=== PATIENT | female | born 1960 | race Caucasian/White ===

== ENCOUNTER 2019-06-26 11:18 | Emergency (ER) | payer MEDICARE, OTHER, SELFPAY ==
[2019-06-26] VITALS (7 sets, daily range): BP systolic 99–133; BP diastolic 7–88; PULSE 70–78; RESP 10–18; TEMP 36.8–37.3; O2SAT 97–99; BMI 31.4
--- NOTE | 2019-06-26 11:47 | DI.RAD.S_ITS ---
PROCEDURE: XR CHEST 1V INDICATIONS: suspected sepsis TECHNIQUE: One view of the chest was acquired. COMPARISON: None. FINDINGS: Surgical changes and devices: None. Lungs and pleura: Lungs are clear. No pleural effusions or pneumothorax. Mediastinum: Mediastinal contours appear normal. Heart size is normal. Bones and chest wall: No suspicious bony lesions. Overlying soft tissues appear unremarkable. IMPRESSION: No acute cardiopulmonary disease. Dictated by: Consuelo White M.D. on 06/26/2019 at 12:38 Approved by: Consuelo White M.D. on 06/26/2019 at 12:49
[2019-06-26] MEDS: SODIUM CHLORIDE 0.9% 1,000 ML 1000 ML IV (12:14)
[2019-06-26 12:16] LABS: RBC Urine None Seen (0-5/HPF)
[2019-06-26 12:17] LABS: Add Manual Diff / Slide Review NO; Basophils Absolute Auto 0 /uL (0-100); Basophils Percent Auto 0.7 % (0-2); Eosinophils Absolute Auto 0 /uL (0-450); Eosinophils Percent Auto 0.4 % (2-4); Hematocrit 37.3 % (36-46); Hemoglobin 12.7 g/dL (12.0-16.0); Lymphocytes Absolute Auto 1900 /uL (1100-4500); Lymphocytes Percent Auto 40.3 % (25-40); Mean Corpuscular HGB Conc 34.1 % (30-36); Mean Corpuscular Hemoglobin 33.2 PG (26-34); Mean Corpuscular Volume 97.5 fL (80-100); Monocytes Absolute Auto 300 /uL (0-900); Monocytes Percent Auto 6.5 % (3-14); Neutrophils Absolute Auto 2500 /uL (1500-7000); Neutrophils Percent Auto 52.1 % (50-75); Platelet Count 222 X10^3/uL (150-400); Red Blood Cell Count 3.83 X10^6/uL (4.0-5.2); Red Cell Distribution Width 11.9 % (11.6-14.8); White Blood Cell Count 4.8 X10^3/uL (4.5-11.0)
--- NOTE | 2019-06-26 12:21 | ED_ITS ---
HPI - Fever General Chief Complaint: Fever Stated Complaint: bladder infection,blood pressure low Time Seen by Provider: 06/26/19 12:21 Source: patient Mode of arrival: Wheelchair Limitations: no limitations History of Present Illness HPI Narrative: 58-year-old female comes to the emergency department with complaint of UTI like symptoms. Patient states she has had bladder pain that started about a week ago. She states that she tried Uristat, cranberry juice and Zaria-[place]. She has not had fevers but has not felt well. She has had increasing abdominal pain and back hurting in the area of her kidneys on both sides. She has felt sort of dizzy. She denies any chest pain no shortness of breath. She states she has had some nausea but no active vomiting. She has had some diarrhea. No black no blood in her stool. Patient has not had any fevers she is aware of. She has had UTIs in the past. Cultures have not always been positive but they typically are. About 3 weeks ago she had a week of upper re spiratory infection that worked in to diarrhea and then resolved and then a week after resolution of her symptoms developed the bladder pain and spasm symptoms. Patient has a significant past medical history with Factor 5 Leiden, Prinzmetal angina, cardiac ablation for arrhythmias that resulted in a pacemaker, lupus, thyroid cancer that resulted in thyroidectomy, pseudotumor cerebri, and fibromya lgia. Patient has had a Kermit fundoplication, pacemaker was replaced and is MRI appropriate in June, thyroidectomy, ex lap, hysterectomy and has 1 ovary, hernia repair x2 and cardiac ablation. She is allergic to metoprolol and contrast dye but states she does well when prepped. She denies any antibiotic allergies Related Data Home Medications Medication Instructions Recorded Confirmed flecainide 50 mg PO BID #0 04/23/11 06/26/19 acetazolamide 500 mg 500 mg PO BID 06/26/19 06/26/19 capsule,extended release duloxetine 60 mg capsule,delayed 60 mg PO DAILY 06/26/19 06/26/19 release epinephrine 0.3 mg/0.3 mL 0.3 mg IM ONCE PRN 06/26/19 06/26/19 injection, auto-injector gabapentin 600 mg PO BEDTIME 06/26/19 06/26/19 gabapentin 300 mg capsule 300 mg PO QAM 06/26/19 06/26/19 hydroxychloroquine 200 mg tablet 200 mg PO BID 06/26/19 06/26/19 isosorbide mononitrate 120 mg 120 mg PO DAILY 06/26/19 06/26/19 tablet,extended release 24 hr levothyroxine 88 mcg tablet 88 mcg PO DAILY 06/26/19 06/26/19 liothyronine 5 mcg tablet 2.5 mcg PO DAILY tab 06/26/19 06/26/19 memantine 5 mg tablet 5 mg PO BID 06/26/19 06/26/19 nitroglycerin 0.4 mg sublingual 0.4 mg SL Q5M PRN 06/26/19 06/26/19 tablet tizanidine 4 mg capsule 4 - 8 mg PO TID PRN 06/26/19 06/26/19 verapamil 200 mg capsule 24hr 200 mg PO BEDTIME 06/26/19 06/26/[address],ext.release Previous Rx's Medication Instructions Recorded amoxicillin-pot clavulanate 1 tab PO BID #14 tab 06/26/19 [Augmentin] Allergies Allergy/AdvReac Type Severity Reaction Status Date / Time codeine Allergy Severe Anaphylaxis Verified 06/26/19 11:46 Iodinated Contrast Media Allergy Severe tongue Verified 06/26/19 11:46 swelling, trouble swallowing metoprolol Allergy Severe Anaphylaxis Verified 06/26/19 11:46 Review of Systems Review of Systems ROS Unobtainable: All systems reviewed & are unremarkable except as noted in HPI and below PFSH Medical History Factor 5 Leiden mutation, heterozygous (Acute) Fibromyalgia (Acute) Lupus (Acute) Pacemaker (Acute) Prinzmetal angina (Acute) Pseudotumor cerebri (Acute) Surgical History H/O cardiac radiofrequency ablation (Acute) H/O thyroidectomy (Acute) H/O: hysterectomy (Acute) History of Kermit fundoplication (Acute) Family History (Updated 06/26/19 @ 12:59 by Leidy Hale DO) Son Heart attack Social History Smoking Status: Never smoker Family History Son Heart attack Social History Smoking Status: Never smoker Exam Narrative Exam Narrative: GENERAL: Alert and oriented x three, well-nourished female in mild distress. HEENT: Head normocephalic, atraumatic, EOMI, pupils reactive, face symmetric, moist mucous membranes NECK: Supple, full range of motion CARDIOVASCULAR: Regular rate and rhythm without murmurs, rubs or gallops. RESPIRATORY: Breath sounds equal bilaterally, no wheezes rales or rhonchi. ABDOMEN: Soft, generalized suprapubic tender. Normoactive bowel sounds all 4 quadrants. No guarding or rebound, rigidity, no mass : Mild bilateral CVA tenderness EXTREMITIES: Normal range of motion, no clubbing or edema. Neurovascularly intact NEUROLOGICAL: Cranial nerves II through XII grossly intact. Moving all extrem ities SKIN: Warm, dry, no petechiae, no rashes or lesions. Initial Vital Signs Initial Vital Signs: Vital Signs Temperature 98.3 F 06/26/19 11:42 Pulse Rate 78 06/26/19 11:42 Respiratory Rate 12 06/26/19 11:42 Blood Pressure 109/62 06/26/19 11:42 Pulse Oximetry 99 06/26/19 11:42 Course Orders Ordered: ED Orders 06/26/19 11:36 Urine Culture Stat Urine Microscopic Stat 06/26/19 11:47 XR chest 1V Stat EKG-12 Lead Stat RT Consult Eval and Treat Now 06/26/19 12:07 Blood Culture Stat Complete Blood Count AUTO DIFF Stat Comprehensive Metabolic Panel Stat Lactate (Lactic Acid) Stat Lipase Stat Partial Thromboplastin Time Stat Procalcitonin Stat Prothrombin Time INR Stat 06/26/19 12:54 CT kidney ureter bladder (KUB) Stat Discontinued Medications Sodium Chloride (Normal Saline 0.9%) 1,000 mls @ 1,000 mls/hr IV BOLUS ONE Stop: 06/26/19 12:46 Last Infusion: 06/26/19 13:30 Dose: 0 mls/hr Documented by: Admin: 06/26/19 12:14 Dose: 1,000 mls/hr Documented by: SAEED Ceftriaxone Sodium/Dextrose (Rocephin) 2 gm in 50 mls @ 100 mls/hr IV NOW ONE Stop: 06/26/19 13:30 Last Infusion: 06/26/19 14:20 Dose: 0 mls/hr Documented by: Admin: 06/26/19 13:13 Dose: 100 mls/hr Documented by: RAFAEL Vital Signs Vital signs: Vital Signs - 8 hr 06/26/19 11:42 06/26/19 12:10 06/26/19 12:14 Temperature 98.3 F Pulse Rate 78 70 Pulse Rate [Orthostatic Lying] 72 Pulse Rate [Orthostatic Sitting] 72 Pulse Rate [Orthostatic Standing] 75 Respiratory Rate 12 18 Blood Pressure 109/62 Blood Pressure [Orthostatic Lying] 99/62 Blood Pressure [Orthostatic Sitting] 111/71 Blood Pressure [Orthostatic Standing] 100/68 Blood Pressure [Right Arm] 104/65 Pulse Oximetry 99 97 06/26/19 12:30 06/26/19 13:13 06/26/19 14:00 Temperature Pulse Rate 70 74 70 Pulse Rate [Orthostatic Lying] Pulse Rate [Orthostatic Sitting] Pulse Rate [Orthostatic Standing] Respiratory Rate 14 17 10 L Blood Pressure Blood Pressure [Orthostatic Lying] Blood Pressure [Orthostatic Sitting] Blood Pressure [Orthostatic Standing] Blood Pressure [Right Arm] 109/7 L 114/69 122/79 Pulse Oximetry 97 98 98 06/26/19 14:54 Temperature 99.2 F Pulse Rate 70 Pulse Rate [Orthostatic Lying] Pulse Rate [Orthostatic Sitting] Pulse Rate [Orthostatic Standing] Respiratory Rate 18 Blood Pressure 133/88 Blood Pressure [Orthostatic Lying] Blood Pressure [Orthostatic Sitting] Blood Pressure [Orthostatic Standing] Blood Pressure [Right Arm] Pulse Oximetry 97 MDM - Fever Lab Data Attestation: I reviewed the patient's lab results. Result diagrams: 06/26/19 12:07 06/26/19 12:07 Labs: Lab Results 06/26/19 06/26/19 06/26/19 Range/Units 11:36 12:07 12:07 WBC 4.8 (4.5-11.0) X10^3/uL RBC 3.83 L (4.0-5.2) X10^6/uL Hgb 12.7 (12.0-16.0) g/dL Hct 37.3 (36-46) % MCV 97.5 (80-100) fL MCH 33.2 (26-34) PG MCHC 34.1 (30-36) % RDW 11.9 (11.6-14.8) % Plt Count 222 (150-400) X10^3/uL Neut % (Auto) 52.1 (50-75) % Lymph % (Auto) 40.3 H (25-40) % [place] % (Auto) 6.5 (3-14) % Eos % (Auto) 0.4 L (2-4) % Baso % (Auto) 0.7 (0-2) % Neut # (Auto) 2500 (0058-9840) /uL Lymph # (Auto) 1900 (5717-1696) /uL [place] # (Auto) 300 (0-900) /uL Eos # (Auto) 0 (0-450) /uL Baso # (Auto) 0 (0-100) /uL PT 11.3 (10.1-12.7) SECONDS INR 1.0 (0.9-1.3) APTT 35 (26.4-36.2) SECONDS Sodium (137-145) mmol/L Potassium (3.4-5.1) mmol/L Chloride (98-107) mmol/L Carbon Dioxide (22-32) mmol/L BUN (7-17) mg/dL Creatinine (0.52-1.04) mg/dL Estimated GFR (>60) mL/min BUN/Creatinine Ratio (6-22) Glucose (70-100) mg/dL Lactate (0.7-2.1) mmol/L Calcium (8.4-10.2) mg/dL Total Bilirubin (0.2-1.3) mg/dL AST (14-36) IU/L ALT (9-52) IU/L Alkaline Phosphatase (38-126) U/L Total Protein (6.3-8.2) g/dL Albumin (3.5-5.0) g/dL Globulin (1.7-4.1) g/dL Albumin/Globulin Ratio (1.0-2.8) Lipase (23-300) U/L Procalcitonin (<0.5) ng/mL Urine RBC None seen (0-5/HPF) Urine WBC 1-5/hpf (0-5/HPF) Ur Squamous Epith Cells 10-30 /hpf H (0-5/HPF) Ur Transition Epith Cell 1-5/hpf (0-5/HPF) Urine Bacteria Few (2-10) H (None) Ur Culture Indicated? Culture not indicate Micro UA Comment 06/26/19 06/26/19 06/26/19 Range/Units 12:07 12:07 12:07 WBC (4.5-11.0) X10^3/uL RBC (4.0-5.2) X10^6/uL Hgb (12.0-16.0) g/dL Hct (36-46) % MCV (80-100) fL MCH (26-34) PG MCHC (30-36) % RDW (11.6-14.8) % Plt Count (150-400) X10^3/uL Neut % (Auto) (50-75) % Lymph % (Auto) (25-40) % [place] % (Auto) (3-14) % Eos % (Auto) (2-4) % Baso % (Auto) (0-2) % Neut # (Auto) (9119-4329) /uL Lymph # (Auto) (5737-5460) /uL [place] # (Auto) (0-900) /uL Eos # (Auto) (0-450) /uL Baso # (Auto) (0-100) /uL PT (10.1-12.7) SECONDS INR (0.9-1.3) APTT (26.4-36.2) SECONDS Sodium 143 (137-145) mmol/L Potassium 3.5 (3.4-5.1) mmol/L Chloride 109 H (98-107) mmol/L Carbon Dioxide 23 (22-32) mmol/L BUN 13 (7-17) mg/dL Creatinine 0.80 (0.52-1.04) mg/dL Estimated GFR > 60.0 (>60) mL/min BUN/Creatinine Ratio 16.3 (6-22) Glucose 78 (70-100) mg/dL Lactate 0.9 (0.7-2.1) mmol/L Calcium 8.6 (8.4-10.2) mg/dL Total Bilirubin 0.5 (0.2-1.3) mg/dL AST 27 (14-36) IU/L ALT 19 (9-52) IU/L Alkaline Phosphatase 40 (38-126) U/L Total Protein 6.6 (6.3-8.2) g/dL Albumin 3.9 (3.5-5.0) g/dL Globulin 2.7 (1.7-4.1) g/dL Albumin/Globulin Ratio 1.4 (1.0-2.8) Lipase 66 (23-300) U/L Procalcitonin < 0.05 (<0.5) ng/mL Urine RBC (0-5/HPF) Urine WBC (0-5/HPF) Ur Squamous Epith Cells (0-5/HPF) Ur Transition Epith Cell (0-5/HPF) Urine Bacteria (None) Ur Culture Indicated? Micro UA Comment Urine Dip Bedside Urine Glucose Negative Bedside Urine Bilirubin + 1 Bedside Urine Ketone - Negative Urine Specific [place] 1.010 Bedside Urine Occult Blood - Negative Bedside Urine pH 7.0 Bedside Urine Protein - Negative Bedside Urine Urobilinogen +/- 1mg Bedside Urine Nitrite + Positive Bedside Urine Leukocytes ++ [address] scan - abdomen: Radiologist's impression: DO Alpesh Diego Patient Imaging - Kathryn Gomez E 58 F 1960 ACTIVITY DATE EXAM STATUS AUTHOR 06/26/19 12:54 [facility]26[facility] 11:47 [place] [address] CT Scan Report Signed Patient: Kathryn Gomez EMR#: [id number] : 2Acct:[id number] Age/Sex: 58 / FDate of Service: 06/26/19 Loc: ED Accession Number: [id number] Procedure: CT kidney ureter bladder (KUB) Ordering Provider: Leidy Hale D.O. PROCEDURE: CT KIDNEY URETER BLADDER (KUB) INDICATIONS: uti, ? stones back/abd pain TECHNIQUE: Noncontrast 5 mm thick sections acquired from the diaphragms to the symphysis. 5 mm thick coronal and sagittal reformats were then performed. For radiation dose reduction, the following was used: automated exposure control, adjustment of mA and/or kV according to patient size. COMPARISON: None. FINDINGS: Image quality: Excellent. Lung bases: Lung bases are clear. Heart size is normal. Surgical clips at the GE junction. Urinary system: Both kidneys are normal in size. No kidney stones. There is trace renal pelviectasis bilaterally. No ureteral stones. Both ureters appear non- dilated throughout their expected courses. Bladder wall thickness is normal; no calcified bladder stones. Uterus is surgically absent. Ovaries are not visualized. No pathological free fluid in pelvis. Other solid organs: Liver is normal in size. Gallbladder is normal. Pancreas is normal in contours. Spleen is normal in size. No adrenal nodules. Peritoneum and bowel: Unenhanced bowel loops demonstrate normal wall thickness and caliber. There are colonic diverticula. No CT findings to suggest active diverticulitis. No free fluid or air. There is a large amount of stool in colon. Nodes and vessels: No retroperitoneal or mesenteric adenopathy by size criteria. Aorta and inferior vena cava are normal in caliber. Abdominal wall: There is a small fat containing umbilical hernia. Prior ventral hernia repair. Pelvis: No free pelvic fluid. No inguinal hernias or adenopathy. Bones: No suspicious bony lesions. No vertebral body compression fractures. IMPRESSION: 1. No renal stones. Trace bilateral renal pelviectasis may be secondary to vesicoureteral reflux. 2. Diverticulosis without diverticulitis. 3. Large amount of stool in colon. 4. Small fat containing umbilical hernia. Dictated by: Consuelo White M.D. on 06/26/2019 at 14:10 Approved by: Consuelo White M.D. on 06/26/2019 at 14:19 Chest x-ray: Radiologist's impression: Kathryn Gomez E 58 F 1960 [place] [address] XRay Report Signed Patient: Kathryn Gomez EMR#: [id number] : 1960cct:[id number] Age/Sex: 58 / FDate of Service: 06/26/19 Loc: ED Accession Number: [id number] Procedure: XR chest 1V Ordering Provider: Leidy Hale D.O. PROCEDURE: XR CHEST 1V INDICATIONS: suspected sepsis TECHNIQUE: One view of the chest was acquired. COMPARISON: None. FINDINGS: Surgical changes and devices: None. Lungs and pleura: Lungs are clear. No pleural effusions or pneumothorax. Mediastinum: Mediastinal contours appear normal. Heart size is normal. Bones and chest wall: No suspicious bony lesions. Overlying soft tissues appear unremarkable. IMPRESSION: No acute cardiopulmonary disease. Dictated by: Consuelo White M.D. on 06/26/2019 at 12:38 Approved by: Consuelo White M.D. on 06/26/2019 at 12:49 ECG Data Attestation: I personally reviewed and interpreted this ECG as follows: Interpretation: Atrial paced rhythm, rate of 70, P are 209 QRS of 114 QTC of 414. No ST changes appreciated nonspecific. No priors available MDM Narrative Medical decision making narrative: Patient's lab work shows UTI with nitrates and leukocyte esterase, patient is clinically symptomatic and treated with Rocephin and Augmentin for pyelonephritis. Patient is on multiple medications so this was selected to avoid medication interaction. Patient does not have a white count, coags are normal, chloride is 109 but otherwise normal CMP with a procalcitonin of less than 0.05. Patient's urine was sent for culture as well as blood cultures. KUB showed no stones, trace bilateral renal pelvic cases which could be secondary to vesicoureteral reflux. Some diverticulosis without diverticulitis, large amount of stool in colon and a small fat containing umbilical hernia. These were all discussed with the patient. Patient I discussed 3 through 3 turned over to use she does not have localized Health Care. Also encouraged her to return home to have some sort of follow-up she has not seen her physician since January. Discharge Plan Departure Patient Disposition: Home Clinical Impression: Pyelonephritis Discharge Date/Time: 06/26/19 14:54 Instructions: DI for Kidney Infection Activity Restrictions/Additional Instructions: Follow-up with your physician. Take antibiotics until they are completely gone. You may continue your home medications as prescribed. Return to the emergency department for fevers greater 100.4 F, new vision changes, passing out, chest pain, shortness of breath, worsening abdominal or back pain, persistent, black or bloody stools or other new or concerning symptoms. Prescriptions: New amoxicillin-pot clavulanate [Augmentin] 875-125 mg tablet 1 tab PO BID Qty: 14 RF: 0 No Action gabapentin 300 mg capsule 300 mg PO QAM RF: 0 isosorbide mononitrate 120 mg tablet extended release 24 hr 120 mg PO DAILY RF: 0 hydroxychloroquine 200 mg tablet 200 mg PO BID RF: 0 duloxetine 60 mg capsule,delayed release(DR/EC) 60 mg PO DAILY RF: 0 tizanidine 4 mg capsule 4 - 8 mg PO TID PRN (Reason: Spasms) RF: 0 liothyronine 5 mcg tablet 2.5 mcg PO DAILY RF: 0 acetazolamide 500 mg capsule, extended release 500 mg PO BID RF: 0 verapamil 200 mg capsule, [address] 200 mg PO BEDTIME RF: 0 memantine 5 mg tablet 5 mg PO BID RF: 0 nitroglycerin 0.4 mg tablet, sublingual 0.4 mg SL Q5M PRN (Reason: Chest Pain) RF: 0 levothyroxine [Synthroid] 88 mcg tablet 88 mcg PO DAILY RF: 0 epinephrine 0.3 mg/0.3 mL auto-injector 0.3 mg IM ONCE PRN (Reason: Allergic Reaction) RF: 0 flecainide 50 MG tablet 50 mg PO BID Qty: 0 RF: 0 gabapentin 300 mg Capsule 600 mg PO BEDTIME RF: 0
[2019-06-26 12:23] LABS: Prothrombin Time 11.3 SECONDS (10.1-12.7)
[2019-06-26 12:25] LABS: PTT Partial Thromboplastin Tim 35 SECONDS (26.4-36.2)
[2019-06-26 12:27] LABS: Bacteria Urine Few (2-10); Squamous Epithelial Cell Urine 10-30 /HPF (0-5/HPF); Transitional Epi Cells Urine 1-5/HPF (0-5/HPF); WBC Urine 1-5/HPF (0-5/HPF)
[2019-06-26 12:31] LABS: Alanine Aminotransferase 19 IU/L (9-52); Albumin 3.9 g/dL (3.5-5.0); Albumin Globulin Ratio 1.4 (1.0-2.8); Alkaline Phosphatase 40 U/L (38-126); Aspartate Aminotransferase 27 IU/L (14-36); BUN Creatinine Ratio 16.3 (6-22); Bilirubin Total 0.5 mg/dL (0.2-1.3); Blood Urea Nitrogen 13 mg/dL (7-17); Calcium 8.6 mg/dL (8.4-10.2); Carbon Dioxide 23 mmol/L (22-32); Chloride 109 mmol/L (98-107); Estimated Glomerular Filt Rate > 60.0 mL/min (>60); Globulin 2.7 g/dL (1.7-4.1); Glucose 78 mg/dL (70-100); HEMOLYSIS < 15 (0-50); Lactate (Lactic Acid) 0.9 mmol/L (0.7-2.1); Lipase 66 U/L (23-300); Potassium 3.5 mmol/L (3.4-5.1); Sodium 143 mmol/L (137-145); Total Protein 6.6 g/dL (6.3-8.2)
[2019-06-26 12:45] LABS: Procalcitonin < 0.05 ng/mL (<0.5)
--- NOTE | 2019-06-26 12:54 | DI.CT.S_ITS ---
PROCEDURE: CT KIDNEY URETER BLADDER (KUB) INDICATIONS: uti, ? stones back/abd pain TECHNIQUE: Noncontrast 5 mm thick sections acquired from the diaphragms to the symphysis. 5 mm thick coronal and sagittal reformats were then performed. For radiation dose reduction, the following was used: automated exposure control, adjustment of mA and/or kV according to patient size. COMPARISON: None. FINDINGS: Image quality: Excellent. Lung bases: Lung bases are clear. Heart size is normal. Surgical clips at the GE junction. Urinary system: Both kidneys are normal in size. No kidney stones. There is trace renal pelviectasis bilaterally. No ureteral stones. Both ureters appear non-dilated throughout their expected courses. Bladder wall thickness is normal; no calcified bladder stones. Uterus is surgically absent. Ovaries are not visualized. No pathological free fluid in pelvis. Other solid organs: Liver is normal in size. Gallbladder is normal. Pancreas is normal in contours. Spleen is normal in size. No adrenal nodules. Peritoneum and bowel: Unenhanced bowel loops demonstrate normal wall thickness and caliber. There are colonic diverticula. No CT findings to suggest active diverticulitis. No free fluid or air. There is a large amount of stool in colon. Nodes and vessels: No retroperitoneal or mesenteric adenopathy by size criteria. Aorta and inferior vena cava are normal in caliber. Abdominal wall: There is a small fat containing umbilical hernia. Prior ventral hernia repair. Pelvis: No free pelvic fluid. No inguinal hernias or adenopathy. Bones: No suspicious bony lesions. No vertebral body compression fractures. IMPRESSION: 1. No renal stones. Trace bilateral renal pelviectasis may be secondary to vesicoureteral reflux. 2. Diverticulosis without diverticulitis. 3. Large amount of stool in colon. 4. Small fat containing umbilical hernia. Dictated by: Consuelo White M.D. on 06/26/2019 at 14:10 Approved by: Consuelo White M.D. on 06/26/2019 at 14:19
[2019-06-26] MEDS: CEFTRIAXONE 2 GM/50 ML FROZ.PIGGY IV (13:13)
== END 2019-06-26 14:54 | disposition home or self-care (01) ==
PROVIDERS: Emergency Provider Emergency Medicine
DX: N10 Acute pyelonephritis (principal)
CPT/HCPCS: 36415; 71045; 74176; 80053; 81003; 81015; 83605; 83690; 84145; 85025; 85610; 85730; 87040; 87086; 93005; 96361; 96365; 99285; J0696

== ENCOUNTER 2019-07-01 19:13 | Emergency (ER) | payer MEDICARE, OTHER, SELFPAY ==
[2019-07-01 19:37] VITALS: BP 119/98; PULSE 81; RESP 16; TEMP 36.7; O2SAT 100; BMI 31.9
--- NOTE | 2019-07-01 19:43 | ED.CHESTPAIN ---
HPI - Chest Pain General Chief Complaint: Chest Pain Stated Complaint: states blood pressure drops when she stands Time Seen by Provider: 07/01/19 19:43 Source: patient Mode of arrival: Ambulatory History of Present Illness HPI narrative: PATIENT IS A 58-YEAR-OLD FEMALE WITH HISTORY OF PRINZMETAL ANGINA PACEMAKER AND ATRIAL FIBRILLATION PRESENTING WITH DIZZINESS AND LIGHTHEADEDNESS EVERY TIME SHE STANDS UP. SHE WAS SEEN EVALUATED HERE ON 06/26/2019 FOR SOMETHING SIMILAR. AT THAT TIME SHE WAS DIAGNOSED WITH UTI. HE STATES THAT IT HAS CONTINUED SHE HAS NOT PASSED OUT MOM IT IS NOT WHEN SHE HAS HAD UPS ONLY WHEN SHE STARTS WALKING. She denies any chest pain heart palpitations she does have a mild cough. No nausea vomiting or diaphoresis. He has had some diarrhea no abdominal pain. She is traveling she supposed to go to [place] on Wednesday and is from [place]. Related Data Home Medications Medication Instructions Recorded Confirmed flecainide 50 mg PO BID #0 04/23/11 06/26/19 acetazolamide 500 mg 500 mg PO BID 06/26/19 06/26/19 capsule,extended release duloxetine 60 mg capsule,delayed 60 mg PO DAILY 06/26/19 06/26/19 release epinephrine 0.3 mg/0.3 mL 0.3 mg IM ONCE PRN 06/26/19 06/26/19 injection, auto-injector gabapentin 600 mg PO BEDTIME 06/26/19 06/26/19 gabapentin 300 mg capsule 300 mg PO QAM 06/26/19 06/26/19 hydroxychloroquine 200 mg tablet 200 mg PO BID 06/26/19 06/26/19 isosorbide mononitrate 120 mg 120 mg PO DAILY 06/26/19 06/26/19 tablet,extended release 24 hr levothyroxine 88 mcg tablet 88 mcg PO DAILY 06/26/19 06/26/19 liothyronine 5 mcg tablet 2.5 mcg PO DAILY tab 06/26/19 06/26/19 memantine 5 mg tablet 5 mg PO BID 06/26/19 06/26/19 nitroglycerin 0.4 mg sublingual 0.4 mg SL Q5M PRN 06/26/19 06/26/19 tablet tizanidine 4 mg capsule 4 - 8 mg PO TID PRN 06/26/19 06/26/19 verapamil 200 mg capsule 24hr 200 mg PO BEDTIME 06/26/19 06/26/[address],ext.release Previous Rx's Medication Instructions Recorded amoxicillin-pot clavulanate 1 tab PO BID #14 tab 06/26/19 [Augmentin] isosorbide mononitrate 60 mg PO QAM #30 tab 07/01/19 Allergies Allergy/AdvReac Type Severity Reaction Status Date / Time codeine Allergy Severe Anaphylaxis Verified 06/26/19 11:46 Iodinated Contrast Media Allergy Severe tongue Verified 06/26/19 11:46 swelling, trouble swallowing metoprolol Allergy Severe Anaphylaxis Verified 06/26/19 11:46 Review of Systems Review of Systems Narrative: GENERAL: Denies chills, fatigue, malaise, fever, sweats, travel HEENT: Denies sinus pain, ear pain, sore throat, difficulty swallowing, neck pain RESPIRATORY: Denies dyspnea, cough, wheezing, hemoptysis, sputum. CARDIOVASCULAR: See HPI GASTROINTESTINAL: Denies nausea, vomiting, abdominal pain, diarrhea, constipation, melena. : Denies dysuria, frequency, incontinence, hematuria, urinary retention, flank pain. MUSCULOSKELETAL: Denies weakness, joint pain, or bony pain SKIN: No rash, no erythema, no pruritus NEUROLOGIC: Denies weakness, dizziness, headache, numbness, change in speech, confusion PSYCHIATRIC: No concerning psychosocial issues. 12 point review of systems is negative except for those stated above and HPI Patient History Medical/Surgical History Medical History Factor 5 Leiden mutation, heterozygous (Acute) Fibromyalgia (Acute) Lupus (Acute) Pacemaker (Acute) Prinzmetal angina (Acute) Pseudotumor cerebri (Acute) Surgical History H/O cardiac radiofrequency ablation (Acute) H/O thyroidectomy (Acute) H/O: hysterectomy (Acute) History of Kermit fundoplication (Acute) Family History Son Heart attack Social History Smoking Status: Never smoker Family/Social History Family History Son Heart attack Social History Smoking Status: Never smoker alcohol intake frequency: 0-2 drinks per day Substance Use Type: does not use Exam Initial Vital Signs Initial Vital Signs: Vital Signs Temperature 98.1 F 07/01/19 19:37 Pulse Rate 81 07/01/19 19:37 Respiratory Rate 16 07/01/19 19:37 Blood Pressure 119/98 H 07/01/19 19:37 Pulse Oximetry 100 07/01/19 19:37 GENERAL: Well-appearing, well-nourished and in no acute distress. HEENT: Head atraumatic,EOMI, pupils reactive, face symmetric, moist mucous membranes CARDIOVASCULAR: Regular rate and rhythm without murmurs, rubs or gallops. RESPIRATORY: Breath sounds equal bilaterally, no wheezes rales or rhonchi. ABDOMEN: Soft, nontender. Normoactive bowel sounds all 4 quadrants. No guarding or rebound. EXTREMITIES: Normal range of motion, no clubbing or edema. Neurovascularly intact NEUROLOGICAL: Alert and oriented x4.Normal gait and speech. Cranial nerves II through XII grossly intact. SKIN: Warm, dry, no laceration, no petechiae, no rashes or lesions. Course Orders Ordered: Discontinued Medications Sodium Chloride (Normal Saline 0.9%) 1,000 mls @ 1,000 mls/hr IV BOLUS ONE Stop: 07/01/19 21:20 Last Infusion: 07/01/19 22:38 Dose: 0 mls/hr Documented by: Admin: 07/01/19 20:49 Dose: 1,000 mls/hr Documented by: CABRERA Vital Signs Vital signs: Vital Signs - 8 hr 07/01/19 19:37 07/01/19 19:54 07/01/19 19:55 Temperature 98.1 F Pulse Rate 81 75 Pulse Rate [Orthostatic Lying] 74 Pulse Rate [Orthostatic Sitting] 73 Pulse Rate [Orthostatic Standing] 73 Respiratory Rate 16 15 Blood Pressure 119/98 H Blood Pressure [Orthostatic Lying] 106/61 Blood Pressure [Orthostatic Sitting] 99/68 Blood Pressure [Orthostatic Standing] 100/68 Blood Pressure [Right Arm] 100/68 Pulse Oximetry 100 97 07/01/19 20:42 07/01/19 22:00 07/01/19 22:44 Temperature Pulse Rate 71 71 70 Pulse Rate [Orthostatic Lying] Pulse Rate [Orthostatic Sitting] Pulse Rate [Orthostatic Standing] Respiratory Rate 14 15 16 Blood Pressure 131/76 Blood Pressure [Orthostatic Lying] Blood Pressure [Orthostatic Sitting] Blood Pressure [Orthostatic Standing] Blood Pressure [Right Arm] 144/88 H 126/79 Pulse Oximetry 99 98 MDM - Chest Pain Lab Data Attestation: I reviewed the patient's lab results. Result diagrams: 07/01/19 19:45 07/01/19 19:45 Labs: Lab Results 07/01/19 07/01/19 07/01/19 Range/Units 19:45 19:45 19:45 WBC 6.0 (4.5-11.0) X10^3/uL RBC 3.68 L (4.0-5.2) X10^6/uL Hgb 12.4 (12.0-16.0) g/dL Hct 36.2 (36-46) % MCV 98.4 (80-100) fL MCH 33.7 (26-34) PG MCHC 34.2 (30-36) % RDW 11.9 (11.6-14.8) % Plt Count 233 (150-400) X10^3/uL Neut % (Auto) 54.8 (50-75) % Lymph % (Auto) 37.2 (25-40) % [place] % (Auto) 7.2 (3-14) % Eos % (Auto) 0.0 L (2-4) % Baso % (Auto) 0.8 (0-2) % Neut # (Auto) 3300 (2931-4868) /uL Lymph # (Auto) 2200 (5725-9097) /uL [place] # (Auto) 400 (0-900) /uL Eos # (Auto) 0 (0-450) /uL Baso # (Auto) 0 (0-100) /uL PT 11.7 (10.1-12.7) SECONDS INR 1.0 (0.9-1.3) APTT 34 (26.4-36.2) SECONDS Sodium 141 (137-145) mmol/L Potassium 3.4 (3.4-5.1) mmol/L Chloride 108 H (98-107) mmol/L Carbon Dioxide 23 (22-32) mmol/L BUN 14 (7-17) mg/dL Creatinine 0.90 (0.52-1.04) mg/dL Estimated GFR > 60.0 (>60) mL/min BUN/Creatinine Ratio 15.6 (6-22) Glucose 94 (70-100) mg/dL Calcium 8.9 (8.4-10.2) mg/dL Total Bilirubin 0.6 (0.2-1.3) mg/dL AST 28 (14-36) IU/L ALT 21 (9-52) IU/L Alkaline Phosphatase 40 (38-126) U/L Total Creatine Kinase 64 (30-135) U/L CK-MB (CK-2) TNP CK-MB (CK-2) Rel Index TNP Troponin I < 0.012 (0.01-0.034) ng/mL B-Natriuretic Peptide (<100) Total Protein 6.7 (6.3-8.2) g/dL Albumin 4.2 (3.5-5.0) g/dL Globulin 2.5 (1.7-4.1) g/dL Albumin/Globulin Ratio 1.7 (1.0-2.8) Lipase 97 (23-300) U/L 07/01/19 Range/Units 19:45 WBC (4.5-11.0) X10^3/uL RBC (4.0-5.2) X10^6/uL Hgb (12.0-16.0) g/dL Hct (36-46) % MCV (80-100) fL MCH (26-34) PG MCHC (30-36) % RDW (11.6-14.8) % Plt Count (150-400) X10^3/uL Neut % (Auto) (50-75) % Lymph % (Auto) (25-40) % [place] % (Auto) (3-14) % Eos % (Auto) (2-4) % Baso % (Auto) (0-2) % Neut # (Auto) (7545-9881) /uL Lymph # (Auto) (5399-6086) /uL [place] # (Auto) (0-900) /uL Eos # (Auto) (0-450) /uL Baso # (Auto) (0-100) /uL PT (10.1-12.7) SECONDS INR (0.9-1.3) APTT (26.4-36.2) SECONDS Sodium (137-145) mmol/L Potassium (3.4-5.1) mmol/L Chloride (98-107) mmol/L Carbon Dioxide (22-32) mmol/L BUN (7-17) mg/dL Creatinine (0.52-1.04) mg/dL Estimated GFR (>60) mL/min BUN/Creatinine Ratio (6-22) Glucose (70-100) mg/dL Calcium (8.4-10.2) mg/dL Total Bilirubin (0.2-1.3) mg/dL AST (14-36) IU/L ALT (9-52) IU/L Alkaline Phosphatase (38-126) U/L Total Creatine Kinase (30-135) U/L CK-MB (CK-2) CK-MB (CK-2) Rel Index Troponin I (0.01-0.034) ng/mL B-Natriuretic Peptide < 100 (<100) Total Protein (6.3-8.2) g/dL Albumin (3.5-5.0) g/dL Globulin (1.7-4.1) g/dL Albumin/Globulin Ratio (1.0-2.8) Lipase (23-300) U/L Urine Dip Bedside Urine Glucose Negative Bedside Urine Bilirubin - Negative Bedside Urine Ketone - Negative Urine Specific [place] 1.005 Bedside Urine Occult Blood - Negative Bedside Urine pH 7.0 Bedside Urine Protein - Negative Bedside Urine Urobilinogen - Negative Bedside Urine Nitrite - Negative Bedside Urine Leukocytes - Negative Esterase Imaging Data Chest x-ray: Radiologist's impression: PROCEDURE: XR CHEST 1V INDICATIONS: chest pain TECHNIQUE: One view of the chest was acquired. COMPARISON: [facility], , XR CHEST 1V, 06/26/2019, 11:51. FINDINGS: Surgical changes and devices: Pacemaker. Lungs and pleura: Lungs are clear. No pleural effusions or pneumothorax. Mediastinum: Mediastinal contours appear normal. Heart size is normal. Bones and chest wall: No suspicious bony lesions. Overlying soft tissues appear unremarkable. IMPRESSION: No acute pulmonary process. Dictated by: Dorothy Sandoval M.D. on 07/01/2019 at 20:14 ECG Data Attestation: I personally reviewed and interpreted this ECG as follows: Prior ECG tracings: available for review Interpretation: Normal sinus rhythm paced rate [address] changes or to previous EKG MDM Narrative Medical decision making narrative: She does have positive orthostatics., he is not hypoxic she is on quite a large dose of isosorbide monoitrate, although she says she has been on the same dose of medications for quite some time. Just this week she started having issues. Possibly due to her UTI. She says she finished those antibiotics. She overall is feeling better Discharge Plan Departure Patient Disposition: Home Clinical Impression: Orthostatic hypotension Discharge Date/Time: 07/01/19 22:44 Instructions: DI for Orthostatic Hypotension Activity Restrictions/Additional Instructions: *You have been diagnosed with orthostatic hypotension *What to do: I think your symptoms are likely related a combination to your recent illness and your medication. *Continue to take medications as directed Decrease isosorbide mononitrate to 60 mg once daily--> NEW PRESCRIPTION SENT TO [facility] [place] *Follow up with your primary care provider in 2-3 days PLEASE CALL YOUR [facility] [employer] 1ST THING WEDNESDAY MORNING *Return to ER if you should have increasing dizziness, lightheadedness, passing or any new, worsening or concerning symptoms Prescriptions: New isosorbide mononitrate 60 mg tablet extended release 24 hr 60 mg PO QAM Qty: 30 RF: 0 No Action gabapentin 300 mg capsule 300 mg PO QAM RF: 0 isosorbide mononitrate 120 mg tablet extended release 24 hr 120 mg PO DAILY RF: 0 hydroxychloroquine 200 mg tablet 200 mg PO BID RF: 0 duloxetine 60 mg capsule,delayed release(DR/EC) 60 mg PO DAILY RF: 0 tizanidine 4 mg capsule 4 - 8 mg PO TID PRN (Reason: Spasms) RF: 0 liothyronine 5 mcg tablet 2.5 mcg PO DAILY RF: 0 acetazolamide 500 mg capsule, extended release 500 mg PO BID RF: 0 verapamil 200 mg capsule, [address] 200 mg PO BEDTIME RF: 0 memantine 5 mg tablet 5 mg PO BID RF: 0 nitroglycerin 0.4 mg tablet, sublingual 0.4 mg SL Q5M PRN (Reason: Chest Pain) RF: 0 levothyroxine [Synthroid] 88 mcg tablet 88 mcg PO DAILY RF: 0 epinephrine 0.3 mg/0.3 mL auto-injector 0.3 mg IM ONCE PRN (Reason: Allergic Reaction) RF: 0 flecainide 50 MG tablet 50 mg PO BID Qty: 0 RF: 0 gabapentin 300 mg Capsule 600 mg PO BEDTIME RF: 0 amoxicillin-pot clavulanate [Augmentin] 875-125 mg tablet 1 tab PO BID Qty: 14 RF: 0
--- NOTE | 2019-07-01 19:49 | DI.RAD.S_ITS ---
PROCEDURE: XR CHEST 1V INDICATIONS: chest pain TECHNIQUE: One view of the chest was acquired. COMPARISON: [facility], CR, XR CHEST 1V, 06/26/2019, 11:51. FINDINGS: Surgical changes and devices: Pacemaker. Lungs and pleura: Lungs are clear. No pleural effusions or pneumothorax. Mediastinum: Mediastinal contours appear normal. Heart size is normal. Bones and chest wall: No suspicious bony lesions. Overlying soft tissues appear unremarkable. IMPRESSION: No acute pulmonary process. Dictated by: Dorothy Sandoval M.D. on 07/01/2019 at 20:14 Approved by: Dorothy Sandoval M.D. on 07/01/2019 at 20:14
[2019-07-01 19:54] VITALS: BP 100/68; BP 106/61; BP 99/68; PULSE 73; PULSE 74
[2019-07-01 19:55] VITALS: BP 100/68; PULSE 75; RESP 15; O2SAT 97
[2019-07-01 19:59] LABS: Add Manual Diff / Slide Review NO; Basophils Absolute Auto 0 /uL (0-100); Basophils Percent Auto 0.8 % (0-2); Eosinophils Absolute Auto 0 /uL (0-450); Hematocrit 36.2 % (36-46); Hemoglobin 12.4 g/dL (12.0-16.0); Lymphocytes Absolute Auto 2200 /uL (1100-4500); Lymphocytes Percent Auto 37.2 % (25-40); Mean Corpuscular HGB Conc 34.2 % (30-36); Mean Corpuscular Hemoglobin 33.7 PG (26-34); Mean Corpuscular Volume 98.4 fL (80-100); Monocytes Absolute Auto 400 /uL (0-900); Monocytes Percent Auto 7.2 % (3-14); Neutrophils Absolute Auto 3300 /uL (1500-7000); Neutrophils Percent Auto 54.8 % (50-75); Platelet Count 233 X10^3/uL (150-400); Red Blood Cell Count 3.68 X10^6/uL (4.0-5.2); Red Cell Distribution Width 11.9 % (11.6-14.8)
[2019-07-01 20:04] LABS: Prothrombin Time 11.7 SECONDS (10.1-12.7)
[2019-07-01 20:07] LABS: PTT Partial Thromboplastin Tim 34 SECONDS (26.4-36.2)
[2019-07-01 20:12] LABS: Alanine Aminotransferase 21 IU/L (9-52); Albumin 4.2 g/dL (3.5-5.0); Albumin Globulin Ratio 1.7 (1.0-2.8); Alkaline Phosphatase 40 U/L (38-126); Aspartate Aminotransferase 28 IU/L (14-36); BUN Creatinine Ratio 15.6 (6-22); Bilirubin Total 0.6 mg/dL (0.2-1.3); Blood Urea Nitrogen 14 mg/dL (7-17); Calcium 8.9 mg/dL (8.4-10.2); Carbon Dioxide 23 mmol/L (22-32); Chloride 108 mmol/L (98-107); Creatine Kinase 64 U/L (30-135); Estimated Glomerular Filt Rate > 60.0 mL/min (>60); Globulin 2.5 g/dL (1.7-4.1); Glucose 94 mg/dL (70-100); HEMOLYSIS < 15 (0-50); Lipase 97 U/L (23-300); Potassium 3.4 mmol/L (3.4-5.1); Sodium 141 mmol/L (137-145); Total Protein 6.7 g/dL (6.3-8.2)
[2019-07-01 20:24] LABS: Troponin I < 0.012 ng/mL (0.01-0.034)
[2019-07-01 20:42] VITALS: BP 144/88; PULSE 71; RESP 14
[2019-07-01] MEDS: SODIUM CHLORIDE 0.9% 1,000 ML 1000 ML IV (20:49)
[2019-07-01 21:22] LABS: B Type Natriuretic Peptide < 100 (<100)
[2019-07-01 22:00] VITALS: BP 126/79; PULSE 71; RESP 15; O2SAT 99
[2019-07-01 22:44] VITALS: BP 131/76; PULSE 70; RESP 16; O2SAT 98
== END 2019-07-01 22:44 | disposition home or self-care (01) ==
PROVIDERS: Emergency Provider Emergency Medicine
DX: I95.1 Orthostatic hypotension (principal); R07.9 Chest pain, unspecified
CPT/HCPCS: 36415; 71045; 80053; 81003; 82550; 83690; 83880; 84484; 85025; 85610; 85730; 93005; 96360; 96361; 99284; 99285